=== PATIENT | female | born 1950 | race African-American/Black ===

== ENCOUNTER 2021-08-15 08:35 | Emergency (ER) | payer OTHER ==
[~2021-08-15] VITALS: Ht 154.9 cm; Wt 68.0 kg
[~2021-08-15 08:35] MED LIST: NOHOMEMEDICATIONS
[2021-08-15 09:24] LABS: ABSOLUTE NEUTROPHILS 4.8 thou/uL (1.4-8.2); BASOPHILS 0.4 % (0.0-2.0); EOSINOPHILS 0.4 % (0.0-3.0); HEMOGLOBIN 14.3 gm/dL (12.0-15.0); LYMPHOCYTES 21.3 % (24.0-44.0); MCHC 33.3 g/dL (28.0-37.0); MCV 84.1 fL (80.0-100.0); MONOCYTES 10.2 % (1.0-8.0); POLYS 67.7 % (36.0-66.0); RBC 5.12 mil/uL (4.20-5.00); RDW 13.4 % (10.5-14.5)
[2021-08-15 09:28] LABS: CALCIUM 8.9 mg/dL (8.5-10.1); CREATININE 0.9 mg/dL (0.6-1.0); POTASSIUM 3.4 mmol/L (3.5-5.1)
[2021-08-15 09:34] LABS: ALBUMIN 3.8 g/dL (3.4-5.0); TOTAL BILIRUBIN 0.4 mg/dL (0.2-1.0); TOTAL PROTEIN 7.7 g/dL (6.4-8.2)
[2021-08-15 10:53] LABS: PLATELET COUNT 145 thou/uL (150-400)
[2021-08-15] MEDS ORDERED: PEPCID20 MG PO (10:57)
[2021-08-15 10:59] VITALS: BP 140/60
--- NOTE | 2021-08-15 16:28 | EKG ---
[address] [address] [place] [address] ELECTROCARDIOGRAM REPORT Name: YOUSUF WILEY [facility] [id number] Admission: 08/15/21 Attend Phys: Discharge: 08/15/21 Date of : 54 Report #: [id number] [facility] ED Test Date: 2021-08-15 Test Time: 08:39:57 Pat Name: YOUSUF WILEY Department: Room: Gender: F Linux System Administrator: unknown : 1950 Requested By: Luis Medrano Order Number: [id number] MD: Ahmet Cueto Measurements Intervals [place] Rate: 112 P: 67 TX: 177 QRS: 80 QRSD: 82 T: -21 QT: 322 QTc: 440 Interpretive Statements Sinus tachycardia LAE, consider biatrial enlargement Probable left ventricular hypertrophy Borderline T abnormalities, inferior leads No previous ECG available for comparison Electronically Signed On 08-15-2021 16:28:18 CDT by Ahmet Cueto [email or web address] <ELECTRONICALLY SIGNED> By: Ahmet Cueto MD, [facility] 08/15/21 1628 8 8 Ahmet Cueto MD, FACC /EPI
== END 2021-08-15 10:59 | disposition home or self-care (01) ==
LOC: ER 08:35
PROVIDERS: Emergency Medicine
DX: K29.70 Gastritis, unspecified, without bleeding (principal); Z98.890 Other specified postprocedural states